=== PATIENT | female | born 1965 | race Caucasian/White ===

== ENCOUNTER 2024-05-06 06:35 | Day surgery (SDC) | payer BC, OTHER ==
[2024-05-06] MEDS ORDERED: Lidocaine 2% 5 ML SDV INJECT ONE (06:36)
[2024-05-06] MEDS ORDERED: Propofol 200 MG/20 ML SDV IV ONE (06:36)
[2024-05-06] MEDS ORDERED: Sodium Chloride 0.9% 10 ML Syringe FLUSH PRN (06:45)
[2024-05-06] MEDS: Lactated Ringers 1,000 ML IV SCH (07:25)
[2024-05-06] MEDS: Simethicone Drops 40 MG/0.6 ML 30 ML Bottle ONE (07:59)
[2024-05-06 08:55] VITALS: PULSE 65
[2024-05-06 09:13] VITALS: BP 119/74
== END 2024-05-06 09:11 | disposition home or self-care (01) ==
LOC: FB.SDS 06:35
PROVIDERS: ATTEND Surgery
DX: Z12.11 Encounter for screening for malignant neoplasm of colon (principal); D12.6 Benign neoplasm of colon, unspecified; F17.210 Nicotine dependence, cigarettes, uncomplicated; Z80.0 Family history of malignant neoplasm of digestive organs
CPT/HCPCS: 00812; 45385; 88305; A9270; J2704; J7120